=== PATIENT | male | born 1995 | race Caucasian/White ===

== ENCOUNTER 2018-09-17 02:09 | Emergency (ER) | payer BC ==
--- NOTE | 2018-09-17 03:06 | EDPHY ---
H & P Stated Complaint: L [address] RASH/FELL TWO DAYS AGO Time Seen by Provider: 09/17/18 02:26 HPI/ROS: Chief Complaint: Road rash HPI: 23-year-old male sustained abrasions to his left abdomen and hip yesterday when he slipped while sliding on ice. They have been applying Neosporin including it with saline water. He says that he gets relief with ibuprofen but when ibuprofen wears off the pain returns. He has not been taking acetaminophen. His partner is concerned that it might be infected. No fevers or chills. No discharge from the wounds. ROS: 10 systems were reviewed and were negative except those elements noted in the HPI. PMH: Denies Social History: No smoking, occasional alcohol Family History: non-contributory Physical Exam: Gen: Awake, Alert, No Distress HEENT: Nose: no rhinorrhea Eyes: PERRLA, EOMI Mouth: Moist mucosa Neck: Supple, no JVD Abd: Soft, non-tender, moderate left lateral abrasion. No discharge, no erythema. Abdomen is soft and completely nontender. Back: no CVA tenderness, no midline tenderness Ext: no edema, non-tender, there is an abrasion over his left iliac crest. No bony tenderness or deformity, no crepitus Skin: no rash Neuro: CN II-XII intact, Sensation grossly intact, Strength 5/5 in bilateral upper and lower extremities - Personal History Current Tetanus Diphtheria and Acellular Pertussis (TDAP): Yes - Medical/Surgical History Hx Asthma: No Hx Chronic Respiratory Disease: No Hx Diabetes: No Hx Cardiac Disease: No Hx Renal Disease: No Hx Cirrhosis: No Hx Alcoholism: No Hx HIV/AIDS: No Hx Splenectomy or Spleen Trauma: No Other PMH: ORAL SX - Social History Smoking Status: Never smoked Constitutional: Initial Vital Signs Temperature (C) 36.7 C 09/17/18 02:15 Heart Rate 88 09/17/18 02:15 Respiratory Rate 16 09/17/18 02:15 Blood Pressure 122/77 H 09/17/18 02:15 O2 Sat (%) 97 09/17/18 02:15 O2 Delivery Mode Room Air Allergies/Adverse Reactions: No Known Allergies Allergy (Unverified 09/17/18 02:15) Home Medications: Medication Instructions Recorded NK [No Known Home Meds] 09/17/18 Medical Decision Making ED Course/Re-evaluation: 23-year-old male with healing abrasions. Do not appear infected at this time. No bony or intra-abdominal abnormality appreciated on exam. There actually caring for them quite well. Will continue with topical antibiotic ointment, Tylenol and Motrin, follow up with primary care for any concerns. Departure - Departure Disposition: Home, Routine, Self-Care Clinical Impression: Abrasion Condition: Good Instructions: Abrasion (ED) Additional Instructions: Take ibuprofen, 600 mg every 8 hr. You may alternate with acetaminophen, 1000 mg every 8 hr. Change the dressing twice daily, apply antibiotic ointment when you changes dressing. Follow up with primary care physician in 3-4 days for wound check. Return to the emergency depart for increasing pain, increasing redness, discharge from the wound, or any other concerns. Referrals: NONE *PRIMARY CARE P,. [Primary Care Provider] - As per Instructions
[2018-09-17 03:17] VITALS: BP 125/77
== END 2018-09-17 03:16 | disposition home or self-care (01) ==
DX: S30.811A Abrasion of abdominal wall, initial encounter (principal); S70.212A Abrasion, left hip, initial encounter; W00.0XXA Fall on same level due to ice and snow, initial encounter; Y93.9 Activity, unspecified; Y92.9 Unspecified place or not applicable